=== PATIENT | female | born 1960 | race Caucasian/White ===

== ENCOUNTER 2019-06-12 10:27 | Day surgery (SDC) | payer BC ==
[2019-06-11 09:12] LABS: BASOPHILS % (AUTO) 0.8 % (0-1); EOSINOPHILS # (AUTO) 0.1 X10'3 (0-0.9); EOSINOPHILS % (AUTO) 1.5 % (0-6); HEMATOCRIT 46.2 % (35.0-45.0); HEMOGLOBIN 15.5 g/dl (12.0-16.0); LYMPHOCYTES % (AUTO) 20.7 % (21-51); MEAN CORPUSCULAR HEMOGLOBIN 29.3 PG (27.0-31.0); MEAN CORPUSCULAR HGB CONC 33.7 g/dL (33.0-36.5); MEAN CORPUSCULAR VOLUME 87.2 FL (78-98); MEAN PLATELET VOLUME 8.6 FL (7.4-10.4); MONOCYTES # (AUTO) 0.3 X10'3 (0-0.9); MONOCYTES % (AUTO) 6.2 % (2-12); NEUTROPHILS # (AUTO) 3.6 X10'3 (1.8-7.7); NEUTROPHILS % (AUTO) 70.8 % (42-75); PLATELET COUNT 204 X10'3 (140-440); RED CELL DISTRIBUTION WIDTH 13.6 % (11.5-14.5); WHITE BLOOD COUNT 5.1 X10'3 (4.5-11.0)
[2019-06-11 09:24] LABS: ALBUMIN 3.4 G/DL (3.4-5.0); ANION GAP 7 (8-16); BLOOD UREA NITROGEN 15 MG/DL (7-18); BUN/CREATININE RATIO 17.2 (6.6-38.0); CALCIUM 8.8 MG/DL (8.5-10.1); CHLORIDE 108 MMOL/L (99-107); CREATININE 0.87 MG/DL (0.40-0.90); GLUCOSE 104 MG/DL (70-104); POTASSIUM 4.2 MMOL/L (3.5-5.1); SODIUM 141 MMOL/L (135-145); TOTAL CARBON DIOXIDE 26.4 MMOL/L (24-32); eGFR 67 ML/MIN
[2019-06-11 09:28] LABS: PARTIAL THROMBOPLASTIN TIME 27 SECONDS (22-32)
[~2019-06-12] VITALS: Ht 165.1 cm; Wt 90.8 kg
[2019-06-12] VITALS (12 sets, daily range): BP systolic 104–135; BP diastolic 52–87
[~2019-06-12 10:27] MED LIST: ALBU6.7H9 INH; ESTR1TAB19 PO; PROGESTRONE
[2019-06-12] MEDS ORDERED: normal saline 1,000 ML IV SCH ×2 (10:45→13:30)
[2019-06-12] MEDS ORDERED: diphenhydrAMINE 25mg capsule PO PRN (10:45)
[2019-06-12] MEDS ORDERED: LORazepam 0.5 MG tablet PO PRN (10:45)
[2019-06-12] MEDS ORDERED: COLE625T13 PO (10:57)
[2019-06-12] MEDS ORDERED: CARV3.122 PO (10:57)
[2019-06-12] MEDS ORDERED: DIAZ5TAB5 PO (10:57)
[2019-06-12] MEDS ORDERED: verapamil 2.5 mg/ml inj IV ONE (11:43)
[2019-06-12] MEDS ORDERED: iohexol 350MG/ML 100ml bottle IV ONE (11:43)
[2019-06-12] MEDS ORDERED: midazolam 2 mg/2 ml injection ONE (11:43)
[2019-06-12] MEDS ORDERED: iohexol 350 MG/ML 50ML vial IV ONE (11:43)
[2019-06-12] MEDS ORDERED: LIDOcaine 1% (10mg/ml)w/preservative injection 20ml MDV ONE (11:43)
[2019-06-12] MEDS ORDERED: fentaNYL/PF 50MCG/1 ML 2ML syringe ONE (11:43)
[2019-06-12] MEDS ORDERED: heparin 1,000unit/ml 10ml vial 10 ML ONE (11:43)
[2019-06-12] MEDS ORDERED: nitroGLYCERIN-Tridil 50MG/D5W 250 ML IV ONE (11:43)
[2019-06-12 12:31] LABS: ISTAT Hct MIX 44 %PCV (35-48); ISTAT O2 SATURATION MIX VENOUS 67 % (60-80); ISTAT SOURCE MIX
[2019-06-12 12:31] LABS: ISTAT Hct ART 44 %PCV (35-48); ISTAT O2 SATURATION ARTERIAL 93 % (95-98); ISTAT SOURCE ART
== END 2019-06-12 19:00 | disposition home or self-care (01) ==
LOC: MED 3N 10:27 → SSTAY O 10:27
PROVIDERS: ATTEND Internal Medicine Cardiovascular Disease
DX: R94.30 Abnormal result of cardiovascular function study, unspecified (principal); I25.10 Atherosclerotic heart disease of native coronary artery without angina pectoris; J45.909 Unspecified asthma, uncomplicated; Z90.710 Acquired absence of both cervix and uterus; Z79.899 Other long term (current) drug therapy; Z88.0 Allergy status to penicillin; Z88.1 Allergy status to other antibiotic agents
CPT/HCPCS: 36415; 80048; 82803; 85014; 85025; 85610; 85730; 93005; 93460; 99152; 99153; C1769; C1894; J1644; J2001; J2250; J3010; J7030; Q0163; Q9967; A5120; J3490